=== PATIENT | female | born 1955 | race Caucasian/White ===

== ENCOUNTER 2019-01-23 09:20 | Day surgery (SDC) | payer BC, OTHER ==
[~2019-01-23] VITALS: Ht 157.5 cm; Wt 79.8 kg
[2019-01-23 09:35] VITALS: Ht 157.5 cm; Wt 79.8 kg
--- NOTE | 2019-01-23 09:49 | PREAC ---
Date/Time of Note Date/Time of Note DATE: 01/23/19 TIME: 09:45 Anesthesia Eval and Record Evaluation Time Pre-Procedure Interview DATE: 01/23/19 TIME: 09:45 Age 63 Sex female NPO: 8 hrs Preoperative diagnosis abd pain, positive occult blood stool Planned procedure egd and colonscopy Past Medical History Past Medical History: Includes Cardio: HTN, Dyslipidemia Pulm: Asthma (exercise induced) Musculoskeletal: Osteoarthritis GI: GERD : Other (hx benign uterine tumor s/p surgery ) Surgery & Anesthesia Issues No known issue Meds Anticoagulation: No Beta Luis Manuel within 24 hr: No Reason Beta Luis Manuel not given: Pt. not on B-Luis Manuel Meds reviewed: Yes Allergies Coded Allergies: No Known Allergy (Unverified , 01/23/19) Allergies Reviewed: Yes Labs/Studies Labs Reviewed: Other (none) test: N/A Pre-procedure Exam Airway: Adequate mouth opening, Adequate thyromental dist Mallampati: Mallampati II Teeth: Normal Lung: Normal Heart: Normal ASA Physical Status ASA physical status: 2 Emergency: None Planned Anesthetic General/MAC: MAC Planned Pain Management Parenteral pain med Pre-operative Attestations Prior to commencing anesthesia and surgery, the patient was re-evaluated, there was verification of: *The patient's identity *The results of appropriate recent lab work and preoperative vital signs *The above evaluation not changing prior to induction *Anesthetic plan, risk benefits, alternative and complications discussed with patient/family; questions answered; patient/family understands, accepts and wishes to proceed. BAILEE SHEEHAN Jan 23, 2019 09:49
[2019-01-23] MEDS ORDERED: PROPOFOL 40 ML ONE (09:50)
[2019-01-23] MEDS ORDERED: NAPROXEN (09:57)
[2019-01-23] MEDS ORDERED: AMLODIPINE (09:57)
[2019-01-23] MEDS ORDERED: NITROGLYCERIN (09:57)
[2019-01-23 10:15] VITALS: BP 144/85; PULSE 70; RESP 20
--- NOTE | 2019-01-23 11:09 | PAC ---
Date/Time of Note Date/Time of Note DATE: 01/23/19 TIME: 11:07 Post-Anesthesia Notes Post-Anesthesia Note Last documented vital signs post, bp 106/62 hr 65 spo2 100% rr 14 temp 97.8 Vital Signs Date Temp Pulse Resp B/P (MAP) Pulse Ox O2 O2 Flow FiO2 Time Delivery Rate 01/23/19 98.5 70 20 144/85 97 Room Air 10:15 (104) Activity: WNL Respiratory function: WNL Cardiovascular function: WNL Mental status: Baseline Pain reasonably controlled: Yes Hydration appropriate: Yes Nausea/Vomiting absent: Yes BAILEE SHEEHAN Jan 23, 2019 11:09
[2019-01-23 11:29] VITALS: BP 135/73; PULSE 65; RESP 18
== END 2019-01-23 12:05 | disposition home or self-care (01) ==
LOC: GIL 09:20
PROVIDERS: ATTEND Internal Medicine Gastroenterology
DX: K92.1 Melena (principal); K29.30 Chronic superficial gastritis without bleeding; I10 Essential (primary) hypertension; J45.909 Unspecified asthma, uncomplicated
CPT/HCPCS: 43239; 45378; 88305; 88312; Z7610